=== PATIENT | female | born 2005 | race Caucasian/White ===

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

== ENCOUNTER → 2023-04-14 | Outpatient (CLI) | payer MEDICAID, SELFPAY | END | disposition home or self-care (01) | LOC: LABSPEC 10:22 | PROVIDERS: Referring Provider Nurse Practitioner Women's Health; Visit Provider Nurse Practitioner Women's Health | DX: N34.0 Urethral abscess (principal) | CPT/HCPCS: 87070; 87077; 87186; 87205 ==

== ENCOUNTER 2023-07-13 13:41 | Day surgery (SDC) | payer MEDICAID, SELFPAY ==
[2023-07-13] VITALS (7 sets, daily range): BP systolic 98–128; BP diastolic 66–74; PULSE 81–142; RESP 16–18; TEMP 36.6–36.7; O2SAT 98–100; BMI 22.3
--- NOTE | 2023-07-13 13:56 | US_ITS ---
STUDY: FIRST TRIMESTER OBSTETRICAL ULTRASOUND REASON FOR EXAM: Female, 17 years old patient with positive test and IUD in place. LMP: July 03, 2023. TECHNIQUE: Transvaginal TECHNICAL QUALITY: Adequate. PRIOR ULTRASOUND: Prior comparison studies are not available for review at this time. FINDINGS: There is no demonstrated intrauterine gestational sac. There is no demonstrated yolk sac. The placenta is non-visualized. There is no demonstrated embryo ( pole). The estimated gestation age (EGA) by LMP is 1 weeks, 3 days The uterus measures 7.2 x 4.1 x 5.7 CM. There is no demonstrated uterine fibroid. The cervix is closed. The right ovary measures 2.9 x 4.5 x 1.6. There are multiple follicles of the right ovary without a dominant cyst. There is a heterogeneous echogenic adnexal mass measuring 4.4 x 3 x 4.3 cm. There is some minimal vascularity associated with this lesion. The left ovary measures 2.0 x 3.2 x 1.9 cm. There is no left ovarian cyst. There is no visualized left adnexal mass or complex lesion. There is a large volume of exudative fluid in the cul de sac. US/Transvaginal w/Preg US IMPRESSION: 1. Large heterogeneously echogenic masslike process in the right adnexa likely represents a ruptured ectopic . 2. There is a large amount of exudative fluid in the pelvis. N.B. : The above Results were Read Back by Ciarra Abreu MD to Erwin Rodarte MD, and understanding confirmed on 07/13/2023 16:19:31 (ET). Electronically Signed: Ciarra Abreu MD at 16:21 EDT ,
--- NOTE | 2023-07-13 14:02 | ED.VIS.FEGU ---
HPI HPI - Female History of Present Illness Chief Complaint: Vag Bleeding Detail of Chief Complaint: Vaginal bleeding, positive test, IUD and bilateral upper abdomina Informant: patient and parent Limited: other (Communications Department Head) Pain Pain: Positive for Pelvic Pain Onset: Today Context: Sudden Onset Timing: Waxes and wanes Quality: Positive for Cramping Location: - (Right upper and left upper abdominal pain as well) Current Severity: Mild Maximum Severity: Moderate Worsened by: Movement Relieved by: - (Nothing) Bleeding Issue: Positive for Vaginal bleeding; Negative for Passing clots or Passing tissue Onset: Yesterday Context: Sudden Onset Timing: Continuous and - (Pad every 4-5 hours) Current Severity: Heavy Associated Symptoms P: 0 Narrative Narrative: Patient is a 17-year-old sexually active female with no history of endometriosis, ovarian cyst, STI or any gynecologic problems presents because of positive test. Patient does have an IUD in place. The IUD was placed June. She complains of pelvic pain as well as bilateral upper abdominal pain. She denies vomiting or diarrhea. She denies dysuria, frequency, urgency or hematuria. She is bleeding 1 tampon every 4-5 hours. This is heavier than normal. Patient denies orthostatic symptoms. Patient denies pain referred to her shoulders. Patient does not know her blood type or the blood type of significant other. Prior similar symptoms: No Recent Illness/Hospitalization: No PFSH PFSH Medical History no medical history no medical history Home Medications levonorgestrel 14 mcg/24 hrs (3 yrs) 13.5 mg intrauterine device (Denisse) 1 device intrauterine ONCE 06/04/22 [History Last Taken Unknown] Allergy/AdvReac Type Severity Reaction Status Date / Time Penicillins Allergy Mild rash Verified 07/13/23 13:43 Family History Grandfather Diabetes Heart disease Congestive heart failure Grandmother Asthma Surgical History S/P glossectomy Social History Smoking Status: Never smoker alcohol intake: never substance use type: does not use caffeine: Yes what type of physical activity do you participate in: none additional social history: Senior in High School ROS ROS ED Constitutional Constitutional ED: Denies chills, fever(s), subjective or sweats ENT ENT ED: Denies rhinorrhea or sore throat Cardiovascular Cardiovascular: Denies chest pain or palpitations Respiratory/Chest Respiratory/Chest: Denies cough, dyspnea or dyspnea on exertion Gastrointestinal Gastrointestinal: Reports abdominal pain and nausea; Denies constipation, diarrhea, melena or vomiting Genitourinary Genitourinary ED: Denies dysuria, hematuria or urinary frequency Musculoskeletal Musculoskeletal: Denies arthralgias, myalgias or neck pain Integumentary Denies rash Psychiatric Psychiatric: Reports anxiety Endocrine Endocrinology: Denies heat intolerance, polydipsia, polyphagia or polyuria Hematologic/Lymphatic Hematologic/Lymphatic: Denies easy bleeding or easy bruising EXAM Physical Exam Const Vital Signs: 07/13/23 13:43 Temperature 97.9 F Temperature Source Temporal Pulse Rate 142 H Respiratory Rate 18 Blood Pressure 128/74 H Blood Pressure Mean 92 Pulse Ox 100 Oxygen Delivery Method Room Air Positive well nourished and well developed General Appearance ED: well developed and NAD; Negative for pallor HEENT Reports TM's clear and moist mucous membranes Tympanic Membrane ED: Yes TM's clear Eyes PERRL and EOMs intact bilaterally General Eye ED: Negative for pale conjunctiva or scleral icterus Neck no lymphadenopathy, supple and no JVD Chest Wall inspection of chest normal Resp normal respiratory effort and clear to auscultation bilaterally Cardio regular rate, regular rhythm, S1 normal heart sound, no murmurs and no JVD GI normal to inspection, nondistended, normoactive bowel sounds, soft to palpation, non-distended and no masses Palpation: tender LUQ and RUQ Back/Spine no CVA tenderness Extremity normal to inspection Neuro oriented x3, CN's II-XII intact bilaterally and no sensory deficits noted Sensorium / Orientation: alert Motor Exam: strength 5/5 throughout Psych Mood & Affect: anxious Skin no rashes or lesions noted and no wounds General Skin Exam: Negative for jaundice or pallor MDM MDM MDM Narrative Medical decision making narrative: Patient with a positive test and vaginal bleeding with IUD in place. Plan is ultrasound. Depending on the ultrasound results IUD may be removed in the department or will contact medical recruiter. Quantitative hCG was obtained. An ABO Rh since patient does not know her blood type. Lab Data Attestation: I reviewed the patient's lab results. Lab results narrative: Quantitative hCG is 572. Patient has a positive blood. Labs: Laboratory Results - last 24 hr 07/13/23 14:20 HCG, Quant 572 H Blood Type A POSITIVE Radiography Diagnostic Testing: ReSound reveals significant mount of free fluid and complex mass right adnexa which raises concern for ruptured ectopic . This would explain her sinus tachycardia. CBC was obtained to assess H&H and platelet count and patient was typed and screened. Call was placed to Dr. Julio Glass at 1548. Management Discussion w/another healthcare provider: Detail Sergeant Treatment and Re-Evaluation Narrative: Per discussion with Dr. Julio Glass she requested ultrasound. Will obtain quantitative hCG. Since patient does not know her blood type or biologic father blood type ABO Rh was obtained. Transvaginal ultrasound was also ordered. Patient was made NPO. Critical Care Time Critical Care Time: Yes Critical care time (excluding procedures): 30-74 minutes (31 minutes), Including time spent: (History, physical, documentation, interpretation laboratory results and ultrasound.), Discussing w/Patient &/or Family/Gambling Box Person, Discussing w/Consultants (Dr. Blanchard was consulted for hemoperitoneum due to right ectopic ) and Arranging Admission or Transfer (To OR) Discharge Plan Dx/Rx/DC Orders Clinical Impression: Ruptured right tubal ectopic causing hemoperitoneum Disposition Disposition: Acute Care [facility]
[2023-07-13 14:57] LABS: hCG Titer Quant., Serum 572 mIU/mL (1-3)
[2023-07-13] MEDS: Morphine 2 MG/ML Syringe IV (15:57)
[2023-07-13] MEDS: Ondansetron 4 MG/2 ML Vial IV (15:57)
[2023-07-13 16:12] LABS: Hematocrit 35.5 % (37-47); Hemoglobin 12.2 g/dL (12.0-15.0); Mean Corp Hgb Conc 34.4 g/dL (32-36); Mean Corpuscular Hgb 31.4 pg (27.0-32.0); Mean Corpuscular Volume 91.3 fL (81-99); Platelet Count 258 K/mm3 (150-450); RBC Distribution Width CV 12.4 % (11.6-14.6); RBC Distribution Width SD 41.4 fl (35.1-43.9); Red Blood Count 3.89 M/mm3 (4.2-5.4); White Blood Count 7.5 K/mm3 (4.4-11.0)
--- NOTE | 2023-07-13 16:15 | FAL_PTH ---
PATIENT: NELLIE ALEJANDRA [place] [facility] [place][id number] AGE/SX: 17/F ROOM: RE07/13/[address]: Dr. Mary Llanes DO : 2005 BED: DIS: 07/13/2023 SPEC #: [id number] RECD: 07/14/23 09:42 STATUS: CHUYITA MORGAN #: [id number] BC: 07/13/23 16:[address]: Mary Llanes DEPT: SURGICAL PATHOLOGY RECD BY: Cora Morgan Tissues: ECTOPIC PREG Procedures: Surgery Specimen Level IV HEADER OPERATION: Laparoscopic right salpingectomy, removal of ectopic PRE-OP DIAGNOSIS: Ruptured right tubal ectopic causing hemoperitoneum TISSUE SUBMITTED: Right fallopian tube and ectopic MICROSCOPIC DIAGNOSIS Right fallopian tube and ectopic, salpingectomy: Right fallopian tube with immature chorionic villi, decidua and blood clots (ectopic ). SJ:yuko 07/15/2023 MICROSCOPIC DESCRIPTION Slides are reviewed. GROSS DESCRIPTION Received in fixative is one container labeled with the patient's name and designated right fallopian tube and ectopic. The specimen consists of a fallopian tube measuring 7.0 cm in length and up to 1.5 cm in diameter. The fimbrial end is identified. Sections reveal the lumen is filled with congested and hemorrhagic material. No obvious rupture is noted. Also present in the container are multiple fragments of blood clots measuring in aggregate 3.5 x 3.0 x 1.0 cm. No tissue is identified. Meteorological Engineer sections are submitted in four cassettes. Cassette 4 contains the blood clots. / JOSE RAMON:yuko 07/14/2023 TC:5 CPT: 97901
--- NOTE | 2023-07-13 16:32 | HP.PCM.OB_ITS ---
HPI - General HPI Narrative NELLIE ALEJANDRA, is a 17 y/o who presents to [facility] ER with the complaint of abdominal pain, IUD in place and positive test. patient states that she has been bleeding for a week. Ultrasound today shows a hemoperitoneium and clot and debris within the right adnexa where her pain is. The IUD appears to be correctly positioned within the uterus. She is also complaining of shoulder pain and Ruq pain and nausea. Her quant was in the 500 range. Her hg is 12, however she is tachycardic and we do not have a hg level to compare to. [facility] Medical History no medical history Home Medications levonorgestrel 14 mcg/24 hrs (3 yrs) 13.5 mg intrauterine device (Denisse) 1 dev ice intrauterine ONCE 06/04/22 [History Last Taken Unknown] Allergy/AdvReac Type Severity Reaction Status Date / Time Penicillins Allergy Mild rash Verified 07/13/23 13:43 Family History Grandfather Diabetes Heart disease Congestive heart failure Grandmother Asthma Surgical History S/P glossectomy Social History Smoking Status: Never smoker alcohol intake: never substance use type: does not use caffeine: Yes what type of physical activity do you participate in: none additional social history: Senior in High School ROS Constitutional Constitutional: Denies change in weight, fatigue, fever(s), headache(s), poor appetite or weakness Eyes Eyes: Denies blurry vision, change in vision, seeing flashes or spots in vision ENT HEENT: Denies dizziness, headache(s), loss taste/smell or sore throat Cardiovascular Cardiovascular: Denies chest pain, dizziness, dyspnea, irregular heart rhythm, leg edema, palpitations or vomiting Respiratory/Chest Respiratory/Chest: Denies chest tightness, cough, dyspnea or breast pain Gastrointestinal Gastrointestinal: Denies abdominal pain, anorexia, constipation, cramping, diarrhea, hemorrhoids or weight changes Genitourinary Genitourinary: Denies dysuria, flank pain, genital lesions, genital pain, urinary frequency or urinary urgency Musculoskeletal Musculoskeletal: Denies difficulty walking, joint pain, limited range of motion, muscle cramps or numbness Integumentary Integumentary: Denies lesions or unusual bruising Neurologic Neurologic: Denies abnormal movements, abnormal speech, dizziness, numbness, seizure-like activity or syncope Psychiatric Psychiatric: Denies anxiety, change in appetite, confusion or depression Hematologic/Lymphatic Hematologic/Lymphatic: Denies easy bleeding, easy bruising or lymphadenopathy Vital Signs Vital Signs Vital Signs: 07/13/23 13:43 Temperature 97.9 F Temperature Source Temporal Pulse Rate 142 H Respiratory Rate 18 Blood Pressure 128/74 H Blood Pressure Mean 92 Pulse Ox 100 Oxygen Delivery Method Room Air Weight Weight: 122 lb 3.2 oz Body Mass Index (BMI) 22.3 Physical Exam Const alert, oriented x3, no apparent distress and healthy appearing General Appearance: cooperative; Negative for anxious HEENT normocephalic Face and Sinus: normal facial exam Eyes no scleral icterus General Eye: normal appearance of both eyes Resp normal respiratory effort Effort and Inspection: able to speak in complete sentences Cardio regular rate GI Inspection: gravid Palpation: soft and tender RLQ and suprapubic Back/Spine no CVA tenderness Extremity normal to inspection, full ROM and no clubbing, cyanosis or edema General Extremity: Negative for calf tenderness or edema Skin Lesions: no lesions Rashes: no rashes Psych mental status grossly normal Labs Labs Labs: Blood Type A POSITIVE Antibody Screen Pending Hct 35.5 % (37-47) L Hgb 12.2 g/dL (12.0-15.0) Obstetrics US Chlamydia DNA (RY) Negative (Negative) Neisseria gonorrhoeae DNA (RY) Negative (Negative) Assessment & Plan (1) Ruptured right tubal ectopic causing hemoperitoneum: PLAN: After discussing the patient's diagnosis and treatment plan options, patient wishes to proceed with surgical management. I have discussed with the patient the risks, benefits, and alternatives of the procedure which include but are not limited to risks of anesthesia, bleeding, infection, possible damage to bowel, bladder, or surrounding vasculature which could lead to additional surgery to evaluate any complications. Patient agrees to procedure and wishes to proceed with a diagnostic laparoscopy, evacuation of hemoperitoneum, removal of ectopic . She also wants me to look at a possible bartholin gland cyst and treat if necessary. She understands that ultrasound shows that she likely has a ruptured right fallopian tube and this will likely need to be removed.
--- NOTE | 2023-07-13 16:39 | DCINST_ITS ---
Discharge Instructions Diet Discharge Diet: No restrictions Activity Discharge Activity: Return to Normal Activity, May Not Drive (for two weeks or while taking narcotic pain medications.), May Shower and May Take a Tub Bath (in 7 days) May resume sexual activity in: 1 week Weight Bearing Status: Full weight bearing Dressing / Incision Call your doctor if you observe: Using more than 1 pad per hour, Shortness of breath, Chest pain and Uncontrolled pain Suture Line Care: Avoid Pulling/Pushing and Avoid Pinching/Bending Remove Dressing in: 1 week (if present) Cleanse incision/area with: Soap & Water and Keep Dressing Clean & Dry Follow Up Care Please Follow Up With: Mary Llanes DO When: Call to make an appointment with your doctor for a follow up incision check in 1-2 weeks. Test Results: Test results from this visit will be discussed in further detail at your follow- up appointment, if applicable. Discharge Plan Admission Primary Reason for Your Visit: ectopic Attending Provider: Mary Llanes Primary Care Provider: AMISH MORGAN MD Discharge Orders/Prescriptions Prescriptions: New ibuprofen 800 mg tablet 800 mg PO Q8H PRN (Reason: pain) Qty: 30 0RF oxycodone-acetaminophen [Percocet] 5-325 mg tablet 1 tab PO Q4H PRN (Reason: pain) 7 Days Qty: 20 0RF Rx Instructions: 1-2 tabs q 4 hrs as needed for pain ondansetron 4 mg tablet,disintegrating 4 mg PO Q8H PRN (Reason: nausea and vomiting) Qty: 20 0RF Continued Denisse 14 mcg/24 hrs (3 yrs) 13.5 mg intrauterine device 1 device intrauterine ONCE Rx Instructions: as a single dose Referrals / Follow Up: Care Physician,No Primary [Non-Staff] - Disposition Disposition (needs filled in before D/C Order can be placed): Home, Self Care
[2023-07-13] MEDS: Bupivacaine 0.25% 30 ML Vial (17:48)
--- NOTE | 2023-07-13 17:59 | OP.PCM_ITS ---
Problems Associated Problem List Diagnoses (1) Ruptured right tubal ectopic causing hemoperitoneum: Report of Operation Date of Procedure: 07/13/23 Pre-Operative Diagnosis: right ectopic Post-Operative Diagnosis: right ectopic Surgery/Procedure Performed:: laparoscopic right salpingectomy, evacuation of hemoperitoneum, Surgeon: Mary Llanes contact center assistant: Ana Cristina Amaya Type of Anesthesia: General Description of Procedure: Patient was taken in the operating room and was placed under general anesthesia was prepped and draped in normal sterile fashion in the dorsal lithotomy position. Bladder was drained of clear urine and SCDs were on preoperatively. A vaginal sponge stick was inserted into the vagina. Attention was then paid to the abdominal portion of the procedure and the umbilicus was elevated and injected with Marcaine and after a 5 mm incision was made and a 5 mm trocar was inserted into the abdomen under direct visualization using the laparoscope. Abdomen was insufflated with CO2 gas and a 5 mm optical trocar was placed under direct visualization. A left lower quadrant 5 mm port and a mini grasper suprapubically were placed under direct visualization. Uterus was well visualized and bilateral fallopian tubes identified and the left was noted to be normal, the right contained a mass like structure consistent with presumed ectopic . There was approximately 200 cc of blood in the pelvis that was first evacuated out using the suction device. The right fallopian tube was elevated and transecting across the mesosalpinx and the attachment to approximately 3 cm from the uterine corpus. Excellent hemostasis was noted. The fallopian tube was then passed into a 5 mm EndoCatch bag and removed through the left lower quadrant port site. The liver and upper abdomen were visualized notably within normal limits and no other gross abnormalities were seen in the abdomen. All instruments removed from the abdomen after gas was desufflated. Port sites were closed with 3-0 Monocryl Steri's and op sites were applied. All instruments removed from the vagina and patient was awoken and taken recovery in stable condition. Complications none Admit VTE Documentation VTE Present on Admission: No VTE Mechan Device Prophylaxis: SCD's VTE Pharm Prophylaxis ordered?: No Multi Select Codes Urinary/Genital Urinary/Genital CPT Codes: 78193 Treat ectopic lapro w/ salpingectomy
== END 2023-07-13 19:47 | disposition home or self-care (01) ==
LOC: ED 15:57 → SDC 16:06 → ACINP 16:39
PROVIDERS: Emergency Provider Emergency Medicine; Visit Provider Obstetrics & Gynecology
PROC: (CPT 58661; principal; 2023-07-13 16:00)
DX: O00.101 Right tubal pregnancy without intrauterine pregnancy (principal); O99.62 Diseases of the digestive system complicating childbirth; K66.1 Hemoperitoneum
CPT/HCPCS: 59151; 00840; 76817; 84702; 85027; 86850; 86900; 86901; 88305; 99282; J7120; A4216; J2405